=== PATIENT | female | born 1940 | race Caucasian/White ===

== ENCOUNTER 2018-09-23 18:35 | Inpatient (IN) | payer OTHER, MEDICARE ==
[~2018-09-23] VITALS: Ht 167.6 cm; Wt 49.9 kg
--- NOTE | 2018-09-23 18:36 | NUR ---
PT BIBA BLS TO BED 9
[2018-09-23 18:37] VITALS: BP 111/59
--- NOTE | 2018-09-23 18:43 | NUR ---
DR. ROBLES MADE AWARE OF PTS CURRENT CONDITION. NO NEW ORDERS GIVEN.
--- NOTE | 2018-09-23 18:48 | NUR ---
78 Y/O F BIBA W/C/O FLU LIKE SYMPTOMS X3 DAYS. PT STATES FEVER, CHILLS, AND BODY AHCES. PT STATES +DIARRHEA, -N/V. PT RECENTLY HAD SX AT [facility] ON ESOPHAGUS AND IT CURRENTLY ON ANTIBIOTICS. PT HAS PICC LINE IN R ARM. PT AAOX4, RR EVEN/UNLABORED. PT JAUNDICED IN COLOR BUT ONLY STATES COLON CA HX. PERRL, LUNGS CLEAR BL, BREATHING UNLABORED; HR EVEN AND REGULAR, BL PERIPHERAL PULSES PRESENT; BS ACTIVE X4, NO TENDERNESS TO PALPATION, NO HEPATOSPLENOMEGALLY PALPATED, RESONANT TO PERCUSSION; PT DENIES ANY FEVER, CP, SOB, OR COUGH AT THIS TIME; PT STATES 0/10 PAIN AT THIS TIME; VSS; PATIENT POSITIONED FOR COMFORT; HOB ELEVATED; BEDRAILS UP X2; BED DOWN.
[2018-09-23] MEDS ORDERED: ACETAMINOPHEN EXTRA STRENGTH 500 MG TAB PO ONE (19:00)
--- NOTE | 2018-09-23 19:07 | NUR ---
DR. PRITCHETT MADE AWARE OF PTS STATUS AND JAUNDICE. ASKED IF TYLENOL OKAY TO GIVE. HE WILL COME EVALUATE PT.
--- NOTE | 2018-09-23 19:12 | NUR ---
DR. PRITCHETT AT BEDSIDE EVALUATING
[2018-09-23] MEDS ORDERED: NACL 0.9% 1,000 ML IV ONE ×2 (19:16)
--- NOTE | 2018-09-23 19:20 | NUR ---
RECEIVED REPORT FROM AM NURSE. PT RESTING IN BED, DENIES ANY PAIN AT THIS TIME, RR EVEN AND UNLABORED. PER ER MD, IT IS OK TO GIVE TYLENOL PO DESPITE JAUNDICE. ADMINISTERED MED WITH EDUCATION. PT'S NEPHEW AT BEDSIDE TO TRANSLATION PER PT REQUEST. PT VERBALIZED UNDERSTANDING.
--- NOTE | 2018-09-23 19:45 | NUR ---
EKG PERFORMED AT BEDSIDE WITH FAMILY MEMBER PRESENT. PT COVERED IN GOWN AND BLANKET DURING PROCEDURE.
[2018-09-23 20:00] LABS: HEMATOCRIT 30.1 % (36-48); HEMOGLOBIN 9.8 g/dL (12.0-16.0); MEAN CORPUSCULAR HEMOGLOBIN 27 pg (27-31); MEAN CORPUSCULAR HGB CONC 33 g/dL (33-37); MEAN CORPUSCULAR VOLUME 83.5 fL (80-94); PLATELET COUNT (AUTO) 65 K/uL (140-450)
[2018-09-23 20:23] LABS: PROTHROMBIN TIME 10.7 secs (10.8-13.4)
[2018-09-23 20:27] LABS: ANION GAP 13.4 (8-16); ASPARTATE AMINOTRANSFERASE 54 U/L (15-37); CHLORIDE 103 mmol/L (98-107); GLUCOSE 88 mg/dL (74-106); POTASSIUM 3.4 mmol/L (3.5-5.1); SODIUM SERUM 136 mmol/L (136-145); TOTAL BILIRUBIN 7.9 mg/dL (0.0-1.0); UREA NITROGEN, BLOOD 21 mg/dL (7-18)
[2018-09-23 20:28] LABS: ALBUMIN 2.3 g/dL (3.4-5.0); LIPASE 97 U/L (73-393)
[2018-09-23 20:34] LABS: LYMPHOCYTES % (MANUAL) 2 % (20-46); MONOCYTES % (MANUAL) 1 % (5-12)
--- NOTE | 2018-09-23 20:40 | NUR ---
PT'S NEICE AT BEDSIDE. FEMALE CHAPERRONE PIN INSERTER AT BEDSIDE. # 14 FR Urinary catheter inserted utilizing sterile technique. Immediate return of 200 ml SINDY CLEAR urine noted. Urine sample collected and sent to lab. Pt tolerated procedure WELL.
--- NOTE | 2018-09-23 20:53 | NUR ---
PT RESTING IN BED, RR EVEN AND UNLABORED. VS NOTED. AFEBRILE AT THIS TIME. ALL NEEDS MET.
[2018-09-23] MEDS ORDERED: cefTRIAXone 1,000 MG VIAL ONE (21:02)
[2018-09-23] MEDS ORDERED: VANCOMYCIN HCL 750 MG in DEXTROSE 5% 250 ML IV SCH (21:05)
[2018-09-23] MEDS ORDERED: ONDANSETRON 4 MG/2 ML VIAL IVP PRN (21:35)
[2018-09-23] MEDS ORDERED: LORazepam 2 MG/ML VIAL IVP PRN (21:35)
[2018-09-23] MEDS ORDERED: HYDROcodone/APAP 5/325 MG 1 TAB TAB PO PRN ×2 (21:35)
[2018-09-23] MEDS ORDERED: VANCOMYCIN 1,000 MG VIAL ONE (21:36)
[2018-09-23 21:42] LABS: APPEARANCE,URINE CLEAR (CLEAR); COLOR,URINE AMBER (YELLOW); UGLUCOSE NEGATIVE (NEGATIVE)
[2018-09-23 21:43] LABS: BILIRUBIN,URINE 3+ (NEGATIVE); BLOOD, URINE TRACE (NEGATIVE); LEUKOCYTE ESTERASE ,URINE NEGATIVE (NEGATIVE); NITRITE, URINE NEGATIVE (NEGATIVE)
[2018-09-23 21:47] LABS: RBC,URINE 0-5 (RARE) /HPF (0-5)
[2018-09-23 21:48] LABS: WBC,URINE NONE SEEN /HPF (0-5)
[2018-09-23] MEDS ORDERED: FERR324T11 PO (21:56)
[2018-09-23] MEDS ORDERED: MULT-1993 PO (21:56)
[2018-09-23] MEDS ORDERED: MIRA25TE PO (21:56)
[2018-09-23] MEDS ORDERED: ATRO1TAB PO (21:56)
[2018-09-23] MEDS ORDERED: FURO-572 PO (21:56)
[2018-09-23] MEDS ORDERED: [UNRECOGNIZED DRUG - CODE] OP (21:56)
[2018-09-23] MEDS ORDERED: URSO300C14 PO (21:56)
[2018-09-23] MEDS ORDERED: TRAZ-343 PO (21:56)
[2018-09-23] MEDS ORDERED: TAMS0.4C96 PO (21:56)
[2018-09-23] MEDS ORDERED: PHEN-1749 PO (21:56)
[2018-09-23] MEDS ORDERED: ZINC220C12 PO (21:56)
--- NOTE | 2018-09-23 22:00 | NUR ---
Patient will be admitted to care of DR. KIM. Admited to TELE. Will go to [id number]. Belongings list completed. Report to AUREA FIELDS.
[2018-09-23 22:20] VITALS: BP 80/43
--- NOTE | 2018-09-23 22:20 | NUR ---
RECEIVED BEDSIDE REPORT FROM AUREA RUTHERFORD PATIENT IN BED, FAMILY AT BEDSIDE, ROMANIAN SPEAKING, PICC IN UPPER RIGHT ARM, DRESSING INTACT BP 80/60, DENIES PAIN, WILL CALL DR DAVIS FOR ORDERS, EXPLAINED PLAN OF CARE UPDATED BOARD WILL CONTINUE TO MONITOR. CALL LIGHT WITHIN REACH. SKIN INTACT. MRSA SAMPLE COLLECTED AND SENT TO LAB.
--- NOTE | 2018-09-23 22:30 | NUR ---
STARTED NEW IV IN LEFT ARM 22 G INFUSING D5 AND 1/2 NS. STOPPED VANCO DUE TO REACTION HIVES AND REDNESS, CALL DR DAVIS FOR ORDERS FOR BENADRYL 25 ML PO Q6H.
--- NOTE | 2018-09-23 23:00 | NUR ---
CALLED DR DAVIS TO REPORT LOW BP, TPN, K 3.4, ORDERS TO NOT USE PICC LINE UNTIL REEVALUATED DR DAVIS WILL FOLLOW WITH ORDERS IN MORNING.
[2018-09-24] VITALS: BP 82/43
--- NOTE | 2018-09-24 | NUR ---
V/S TAKEN ALL WITHIN BASELINE.
--- NOTE | 2018-09-24 02:00 | NUR ---
PATIENT SLEEPING IN BED CALL LIGHT WITHIN REACH WILL CONTINUE TO MONITOR.
[2018-09-24 04:00] VITALS: BP 88/60
--- NOTE | 2018-09-24 04:00 | NUR ---
V/S TAKEN ALL WITHIN BASELINE
[2018-09-24] MEDS ORDERED: DEXT 5% / NACL 0.45% 1,000 ML IV SCH (06:30)
[2018-09-24 06:58] LABS: HEMATOCRIT 29.5 % (36-48); HEMOGLOBIN 9.5 g/dL (12.0-16.0); MEAN CORPUSCULAR HEMOGLOBIN 27 pg (27-31); MEAN CORPUSCULAR HGB CONC 32 g/dL (33-37); MEAN CORPUSCULAR VOLUME 84.4 fL (80-94); PLATELET COUNT (AUTO) 52 K/uL (140-450); RED CELL DISTRIBUTION WIDTH 17.1 % (11.6-13.7); WHITE BLOOD COUNT (AUTO) 13.6 K/uL (4.8-10.8)
--- NOTE | 2018-09-24 07:00 | NUR ---
ENDORSED PATIENT TO DAY SHIFT NURSE PATIENT STABLE.
[2018-09-24 07:06] LABS: ALBUMIN 2.1 g/dL (3.4-5.0); ANION GAP 13.8 (8-16); ASPARTATE AMINOTRANSFERASE 44 U/L (15-37); CARBON DIOXIDE 22.7 mmol/L (21-32); CHLORIDE 106 mmol/L (98-107); CREATININE 1.1 mg/dL (0.6-1.3); GLUCOSE 110 mg/dL (74-106); MAGNESIUM 1.9 mg/dL (1.8-2.4); PHOSPHORUS 3.4 mg/dL (2.5-4.9); POTASSIUM 3.5 mmol/L (3.5-5.1); SODIUM SERUM 139 mmol/L (136-145); TOTAL BILIRUBIN 7.8 mg/dL (0.0-1.0); UREA NITROGEN, BLOOD 19 mg/dL (7-18)
[2018-09-24 07:13] LABS: LYMPHOCYTES % (MANUAL) 2 % (20-46); MONOCYTES % (MANUAL) 3 % (5-12)
--- NOTE | 2018-09-24 07:30 | NUR ---
RECEIVED PATIENT BY GUEST EXPERIENCE MANAGER RN BY BEDSIDE. PATIENT IS ALERT AND ORIENTED. DENIES ANY PAIN. PATIENT IS ON ROOM AIR. WILL CONTINUE TO MONITOR THE PATIENT.
--- NOTE | 2018-09-24 07:45 | NUR ---
PATIENT HAS BEEN SCREENED AND CATEGORIZED HIGH NUTRITION RISK. PATIENT WILL BE SEEN WITHIN 1-2 DAYS OF ADMISSION. 09/24/18-09/25/[address]
[2018-09-24 08:00] VITALS: BP 87/47
--- NOTE | 2018-09-24 08:30 | NUR ---
PATIENT EVALUATED BY DR KIM. FAMILY MEMBER AT BEDSIDE
[2018-09-24] MEDS ORDERED: TPN PER PHARMACY MC PRN (09:20)
[2018-09-24 12:15] VITALS: BP 91/52
[2018-09-24] MEDS: BLOOD GLUCOSE MONITORING 1 DEV DEV MC SCH ×2 (12:18→18:04)
[2018-09-24] MEDS ORDERED: CLINICAL MONITORING MC PRN (15:00)
[2018-09-24 16:00] VITALS: BP 91/49
[2018-09-24] MEDS ORDERED: DEXTROSE IV SCH ×4 (17:00)
[2018-09-24] MEDS ORDERED: AMINO ACIDS IV SCH ×4 (17:00)
[2018-09-24] MEDS ORDERED: [UNRECOGNIZED DRUG - OTHER] IV SCH ×4 (17:00)
[2018-09-24] MEDS ORDERED: MULTIVITAMIN IV SCH ×4 (17:00)
[2018-09-24] MEDS: PIPER/TAZO 2.25GM/D5W PREMIX 50 ML IV SCH ×2 (18:00→23:56)
--- NOTE | 2018-09-24 19:42 | NUR ---
PATIENT ENDORSED TO THE INSECT CONTROL AIDE RN BY HER BEDSIDE. PATIENT IS COMFORTABLE AND DENIES ANY PAIN. BED IS AT THE LOWEST POSITION AND CALL LIGHT WITHIN REACH
--- NOTE | 2018-09-24 19:43 | NUR ---
RECEIVED PT IN STABLE CONDITION FROM AM NURSE. AWAKE,ALERT AND ORIENTED X 4. KYRGYZ SPEAKING. ON TELE MONITOR. BEDREST. WITH NO C/O ANY DISCOMFORT NOR PAIN. JUST FEEL COLD ,SHE SAID FROM THE TPN. TPN ON THE RT UPPER ARM PICC LINE. SO FAMILY REQUESTED TO STOP FOR NOW THEN RESTART LATER WHEN TPN IS A LITTLE WARM WHAT THEY DO AT HOME. PT IS INCONTINENT OF URINE. WITH COLOSTOMY BAG. BED ON LOW POSITION. SIDE RAILS UP X2. CALL LIGHT PLACED WITHIN EASY REACH. WILL CONTINUE TO MONITOR.
[2018-09-24 19:45] VITALS: BP 94/52
--- NOTE | 2018-09-24 20:21 | NUR ---
LAB CALLED FOR BLOOD CULTURE REST X2 GRAM NEGATIVE BACILLI ON BOTH. DR. ZAMARRIPA WAS PAGED AND CALLED BACK. MADE AWARE OF THE BC RESULT. WITH ORDER TO DISCONTINUE ZYVOX AND CONTINUE WITH THE ZOSYN.
--- NOTE | 2018-09-24 20:30 | NUR ---
TPN RESTARTED . NO C/O ANY DISCOMFORT NOTED.
[2018-09-24] MEDS ORDERED: LINEZOLID 600MG PREMIX 300 ML IV SCH (21:00)
[2018-09-24] MEDS: ACETAMINOPHEN 325 MG TAB PO PRN (21:34)
--- NOTE | 2018-09-24 23:00 | NUR ---
SLEEPING WELL. NO S/S FO ANY DISCOMFORT NOR PAIN NOTED.
[2018-09-25] VITALS (7 sets, daily range): BP systolic 82–106; BP diastolic 45–56
[2018-09-25] MEDS: BLOOD GLUCOSE MONITORING 1 DEV DEV MC SCH ×6 (00:11→23:49)
[2018-09-25] MEDS: INSULIN LISPRO SLIDING SCALE 100 UNITS/ML VIAL SUBQ PRN ×2 (00:11→06:02)
--- NOTE | 2018-09-25 00:30 | NUR ---
PT INCONTINENT OF URINE. CLEANED AND KEPT DRY BY CHICKEN SEXER.
--- NOTE | 2018-09-25 02:00 | NUR ---
ASLEEP. NO S/S OF ANY DISCOMFORT NOTED.
--- NOTE | 2018-09-25 04:20 | NUR ---
VITAL SIGNS TAKEN. LATEST BP 97/67.
[2018-09-25] MEDS: PIPER/TAZO 2.25GM/D5W PREMIX 50 ML IV SCH ×4 (05:19→23:49)
--- NOTE | 2018-09-25 06:02 | NUR ---
BLOOD SUGAR WAS CHECKED RESULT 173. INSULIN COVERAGE HUMALOG 2 UNITS SUBQ GIVEN.
[2018-09-25 06:44] LABS: BASOPHILS % (AUTO) 0.6 % (0.0-2.0); EOSINOPHILS # (AUTO) 0.1 K/uL (0-0.4); EOSINOPHILS % (AUTO) 0.9 % (0.0-4.0); HEMATOCRIT 28.3 % (36-48); HEMOGLOBIN 9.2 g/dL (12.0-16.0); LYMPHOCYTES # (AUTO) 0.5 K/uL (2.5-16.5); LYMPHOCYTES % (AUTO) 9.4 % (20.5-51.1); MEAN CORPUSCULAR HEMOGLOBIN 27 pg (27-31); MEAN CORPUSCULAR HGB CONC 33 g/dL (33-37); MEAN CORPUSCULAR VOLUME 84.3 fL (80-94); MONOCYTES # (AUTO) 0.4 K/uL (0.8-1.0); NEUTROPHILS # (AUTO) 4.5 K/uL (1.8-7.7); NEUTROPHILS % (AUTO) 81.1 % (42.2-75.2); PLATELET COUNT (AUTO) 48 K/uL (140-450); RED BLOOD CELL COUNT(AUTO) 3.36 MIL/uL (4.20-5.40); RED CELL DISTRIBUTION WIDTH 17.4 % (11.6-13.7); WHITE BLOOD COUNT (AUTO) 5.6 K/uL (4.8-10.8)
[2018-09-25 07:31] LABS: MAGNESIUM 2.1 mg/dL (1.8-2.4); PHOSPHORUS 3.1 mg/dL (2.5-4.9)
[2018-09-25 07:34] LABS: ALBUMIN 1.8 g/dL (3.4-5.0); ANION GAP 12.1 (8-16); ASPARTATE AMINOTRANSFERASE 29 U/L (15-37); CARBON DIOXIDE 23.5 mmol/L (21-32); CHLORIDE 110 mmol/L (98-107); CREATININE 1.1 mg/dL (0.6-1.3); GLUCOSE 170 mg/dL (74-106); POTASSIUM 3.6 mmol/L (3.5-5.1); SODIUM SERUM 142 mmol/L (136-145); TOTAL BILIRUBIN 4.4 mg/dL (0.0-1.0); UREA NITROGEN, BLOOD 17 mg/dL (7-18)
--- NOTE | 2018-09-25 07:35 | NUR ---
ENDORSED PT IN STABLE CONDITION TO AM NURSE FOR CONTINUITY OF CARE.
--- NOTE | 2018-09-25 10:06 | NUR ---
PATIENT AWAKE IN BED. NO S/S OF DISTRESS NOTED
--- NOTE | 2018-09-25 14:59 | NUR ---
09/25/18 RD INITIAL ASSESSMENT COMPLETED PLEASE REFER TO NUTRITION ASSESSMENT UNDER CARE ACTIVITY FOR ESTIMATED NUTRITIONAL NEEDS. 1. CONTINUE TPN AND FULL LIQUID DIET TOLERATED -TPN: D13%, AA 3%, LIPIDS 20% 170 ML; 1700 ML X 18 HOURS. THIS WILL PROVIDE 1295 KCAL, 51 GM OF PROTEIN/DAY. -FULL LIQUID DIET WILL PROVIDE APPROXIMATELY 2337 KCAL AND 61 GM PROTEIN/DAY. 2. PROVIDE NUTRITION EDUCATION AT FOLLOW UP VISIT 3. RD TO FOLLOW-UP 2-3 DAYS, HIGH RISK MALATHI PERALTA RD
[2018-09-25] MEDS ORDERED: MULTIVITAMIN IV SCH ×4 (17:00)
[2018-09-25] MEDS ORDERED: AMINO ACIDS IV SCH ×4 (17:00)
[2018-09-25] MEDS ORDERED: DEXTROSE IV SCH ×4 (17:00)
[2018-09-25] MEDS ORDERED: [UNRECOGNIZED DRUG - OTHER] IV SCH ×4 (17:00)
--- NOTE | 2018-09-25 18:15 | NUR ---
PATIENT WAS HAVING DINNER WITH FAMILY MEMBER PRESENT AT BEDSIDE WHEN PATIENT STARTED SHIVERING UNCONTROLLABLY AND C/O OF NAUSEA. TEMP CHECKED ORALLY 98.0. ZOFRAN ADMINISTERED . WILL CONTINUE TO MONITOR
--- NOTE | 2018-09-25 18:35 | NUR ---
TPN PUT ON HOLD. PATIENT PLACED ON 2L O2 VIA NC
--- NOTE | 2018-09-25 18:35 | NUR ---
PATIENT'S SHAKING INTENSITY INCREASED AND PATIENT STARTED VOMITING. SMALL AMOUNT OF CLEAR THICK LIQUID EMESIS NOTED. CHAIN PERSON CALLED. DR ROUSSEAU PAGED
--- NOTE | 2018-09-25 18:44 | NUR ---
SPOKE TO DR ROUSSEAU AND NOTIFIED HIM ABOUT PATIENT'S CONDITION. PER DR ROUSSEAU, ADMINISTER TYLENOL. MEDS CRUSHED AND MIXED WITH APPLE SAUCE BUT PATIENT IS UNABLE TO TOLERATE PO AT THIS TIME. PAGED DR ROUSSEAU
[2018-09-25] MEDS: ACETAMINOPHEN 325 MG TAB PO PRN (18:48)
[2018-09-25] MEDS ORDERED: KETOROLAC 30 MG/ML VIAL IVP PRN (19:05)
[2018-09-25] MEDS ORDERED: KETOROLAC 30 MG/ML VIAL ONE (19:13)
--- NOTE | 2018-09-25 19:28 | NUR ---
MADE DR ROUSSEAU AWARE THAT PATIENT IS UNABLE TO TOLERATE PO MEDS AT THIS TIME. ORDERS TORADOL 30MG Q6H. TORADOL ADMINISTERED. PATIENT IS NO LONGER SHAKING BUT REPORTS OF BEING COLD. TEMP CHECKED ORALLY 102.8. COOLING MEASURES PUT IN PLACE. MADE DR ROUSSEAU AWARE OF PATIENT LATEST TEMP AND THAT TPN HAS BEEN PUT ON HOLD. NO NEW ORDERS
--- NOTE | 2018-09-25 19:35 | NUR ---
PATIENT REPORT GIVEN AT BEDSIDE. PATIENT AWAKE IN BED. FAMILY MEMBERS PRESENT AT BEDSIDE
--- NOTE | 2018-09-25 19:35 | NUR ---
RECEIVED FROM AM RN IN BED AWAKE AND ALERT. FAMILY MEMBERS AROUND. NO SOB. WITH 02 AT 2LPM/NC. CARE PLANS FOR THE NIGHT DISCUSSED WITH HER AND PT. UNDERSTANDS SIMPLE [place] AND [place] . FAMILY MEMBERS SPEAKS GOOD MARTINIQUAIS. CALL LIGHT WITH IN REACH. RE-ORIENTED USE OF IT. BED ALARM ON. DX. OF UTI AND FEVER. MEDICATED BY AM RN RECENTLY WITH TORADOL IVP ORDERED FOR FEVER. COOLING MEASURES IN PLACE AND PT. PER ORAL IS STILL AT 102.8. PER PT. SHE LESS SHAKING NOW THAN EARLIER RT FEVER.
--- NOTE | 2018-09-25 23:54 | NUR ---
PT. SLEEPING AT THIS TIME. ON ROOM AIR WITH 02 SAT OF 96 %. PULSE 72 AND 82/45 BP. NO RESTLESSNESS. TELEMETRY MONITORING. NO COMPLAINTS AT THIS TIME. TOOK BLOOD SPECIMEN FOR BLOOD SUGAR CHECK =93 PER FINGERSTICK.
[2018-09-26 00:08] VITALS: BP 91/50
--- NOTE | 2018-09-26 02:30 | NUR ---
SLEEPING WELL. PT. ABLE TO VERBALIZE SIMPLE NEEDS. KEPT CLEAN AND DRY. NO FEVER. TELEMETRY MONITORING.
[2018-09-26 04:35] VITALS: BP 85/34
--- NOTE | 2018-09-26 04:39 | NUR ---
NEEDS ATTENDED TO. ABLE TO VERBALIZE SIMPLE NEEDS IN [place]. PT. TURNED TO SIDES Q 2 H BY CNAS. ENCOURAGED TO STAY ON TURNED SIDE. AFEBRILE .
[2018-09-26] MEDS: PIPER/TAZO 2.25GM/D5W PREMIX 50 ML IV SCH ×3 (05:09→17:15)
[2018-09-26] MEDS: BLOOD GLUCOSE MONITORING 1 DEV DEV MC SCH ×3 (05:13→18:22)
[2018-09-26 06:49] LABS: ALBUMIN 1.9 g/dL (3.4-5.0); ANION GAP 8.6 (8-16); ASPARTATE AMINOTRANSFERASE 33 U/L (15-37); CARBON DIOXIDE 26.4 mmol/L (21-32); CHLORIDE 109 mmol/L (98-107); CREATININE 1.3 mg/dL (0.6-1.3); GLUCOSE 107 mg/dL (74-106); SODIUM SERUM 140 mmol/L (136-145); TOTAL BILIRUBIN 6.7 mg/dL (0.0-1.0); UREA NITROGEN, BLOOD 21 mg/dL (7-18)
[2018-09-26 07:27] LABS: MAGNESIUM 1.9 mg/dL (1.8-2.4); PHOSPHORUS 4.2 mg/dL (2.5-4.9)
[2018-09-26 07:42] LABS: BASOPHILS % (AUTO) 0.1 % (0.0-2.0); EOSINOPHILS % (AUTO) 0.3 % (0.0-4.0); HEMATOCRIT 30.3 % (36-48); HEMOGLOBIN 9.8 g/dL (12.0-16.0); LYMPHOCYTES # (AUTO) 0.5 K/uL (2.5-16.5); LYMPHOCYTES % (AUTO) 4.9 % (20.5-51.1); MEAN CORPUSCULAR HEMOGLOBIN 27 pg (27-31); MEAN CORPUSCULAR HGB CONC 32 g/dL (33-37); MEAN CORPUSCULAR VOLUME 84.4 fL (80-94); MONOCYTES # (AUTO) 0.6 K/uL (0.8-1.0); MONOCYTES % (AUTO) 5.1 % (1.7-9.3); NEUTROPHILS # (AUTO) 9.9 K/uL (1.8-7.7); NEUTROPHILS % (AUTO) 89.6 % (42.2-75.2); PLATELET COUNT (AUTO) 37 K/uL (140-450); RED CELL DISTRIBUTION WIDTH 17.7 % (11.6-13.7)
--- NOTE | 2018-09-26 07:46 | NUR ---
ENDORSED TO THE NEXT RN FOR CONTINUITY OF CARE. AWAKE AND ALERT.
--- NOTE | 2018-09-26 07:47 | NUR ---
RECEIVED REPORT FROM BIOINFORMATICIST NURSE. PT IS RESTING IN BED, SEMI FOWLERS POSITION, PT IS AAOX4, AMBULATES WITH ASSIST, PT HAS PICC LINE ON RIGHT UPPER ARM, X2 LUMEN, PATENT, INTACT, FLUSHING WELL, PER BIOINFORMATICIST NURSE PICC LINE IS NOT BEING USED AT THIS TIME, PT HAD A REACTION WHEN ADMINISTERING TPN LAST NIGHT, HOLD OFF ON PICC LINE USE UNTIL DOCTOR COMES IN, PT HAS IV ON THE LEFT WRIST AND LEFT FA, PATENT, INTACT, FLUSHING WELL, PT IS ON ROOM AIR, NO S/S OF RESPIRATORY DISTRESS OR DISCOMFORT NOTED, DISCUSSED PLAN OF CARE WITH PT, PT VERBALIZED UNDERSTANDING, SAFETY/FALL PRECAUTIONS ARE IN PLACE, CALL LIGHT IS WITHIN REACH, WILL CONTINUE TO MONITOR.
[2018-09-26 08:00] VITALS: BP 94/47
--- NOTE | 2018-09-26 09:07 | NUR ---
PER DR. KIM REMOVE PICC LINE AND SEND IT TO LAB. HOLD TPN FOR NOW, WILL CONSIDER PICC LINE FOR Saturday09/29/18.
--- NOTE | 2018-09-26 10:00 | NUR ---
PICC LINE FROM RIGHT UPPER ARM REMOVED, PT TOLERATED WELL, NO DISCOMFORT OR BLEEDING NOTED. CATHETER TIP SENT TO LAB.
[2018-09-26 12:00] VITALS: BP 83/44
--- NOTE | 2018-09-26 12:00 | NUR ---
PT IS SLEEPING IN BED, NO S/S OF DISTRESS OR DISCOMFORT NOTED, CALL LIGHT IS WITHIN REACH.
[2018-09-26] MEDS: DEXT 5% /NACL 0.9% 1,000 ML IV SCH (12:38)
--- NOTE | 2018-09-26 13:47 | NUR ---
GAVE NURSE RECOMMENDATIONS FOR ENSURE CLEAR TID AND A MULTIVITAMIN QD, DUE TO PATIENT NOT BEING ON TPN AT THE MOMENT. MALATHI PERALTA RD
--- NOTE | 2018-09-26 15:00 | NUR ---
PT IS RESTING IN BED, WATCHING TV, PATIENT'S NEPHEW IS AT BEDSIDE.
[2018-09-26 16:00] VITALS: BP 81/46
--- NOTE | 2018-09-26 18:00 | NUR ---
PT IS RESTING IN BED, NO S/S OF DISTRESS OR DISCOMFORT NOTED, FAMILY IT AT BEDSIDE, CALL LIGHT WITHIN REACH.
--- NOTE | 2018-09-26 19:20 | NUR ---
ENDORSED PT TO SOFTWARE SOLUTIONS ARCHITECT NURSE FOR CONTINUITY OF CARE. PT STABLE AT THIS TIME.
--- NOTE | 2018-09-26 19:25 | NUR ---
RECEIVED FROM AM RN IN BED AWAKE AND ALERT. SITTING UP AND TALKING TO A VISITOR. NO SOB. DENIES PAIN AT THIS TIME. IVF SITE INTACT AND INFUSING WELL . GOOD BLOOD RETURN. CARE PLANS FOR THE NIGHT DISCUSSED WITH HER. CALL LIGHT BESIDE HER FOR ANY HELP SHE MAY NEED. ON TELEMETRY MONITORING .
[2018-09-26 19:51] VITALS: BP 83/50
[2018-09-26] MEDS ORDERED: cefTRIAXone 1,000 MG VIAL ONE (22:43)
--- NOTE | 2018-09-27 | NUR ---
BLOOD SUGAR CHECK PER FINGERSTICK WNL. NO S/S OF HYPOGLYCEMIA. CALL LIGHT WITH IN REACH.
[2018-09-27] MEDS: BLOOD GLUCOSE MONITORING 1 DEV DEV MC SCH ×5 (00:23→23:35)
[2018-09-27 00:33] VITALS: BP 80/40
[2018-09-27] MEDS: DEXT 5% /NACL 0.9% 1,000 ML IV SCH ×2 (01:23→14:35)
--- NOTE | 2018-09-27 04:00 | NUR ---
SLEEPING. NEEDS WILL BE ANTICIPATED AND WILL BE MET. AFEBRILE.
[2018-09-27 04:38] VITALS: BP 85/42
[2018-09-27 06:39] LABS: BASOPHILS % (AUTO) 0.5 % (0.0-2.0); EOSINOPHILS % (AUTO) 0.4 % (0.0-4.0); HEMATOCRIT 28.3 % (36-48); HEMOGLOBIN 9.3 g/dL (12.0-16.0); LYMPHOCYTES # (AUTO) 0.4 K/uL (2.5-16.5); LYMPHOCYTES % (AUTO) 3.9 % (20.5-51.1); MEAN CORPUSCULAR HEMOGLOBIN 28 pg (27-31); MEAN CORPUSCULAR HGB CONC 33 g/dL (33-37); MEAN CORPUSCULAR VOLUME 83.6 fL (80-94); MONOCYTES # (AUTO) 0.4 K/uL (0.8-1.0); MONOCYTES % (AUTO) 4.6 % (1.7-9.3); NEUTROPHILS # (AUTO) 8.4 K/uL (1.8-7.7); NEUTROPHILS % (AUTO) 90.6 % (42.2-75.2); RED BLOOD CELL COUNT(AUTO) 3.39 MIL/uL (4.20-5.40); RED CELL DISTRIBUTION WIDTH 17.7 % (11.6-13.7)
[2018-09-27 06:55] LABS: PLATELET COUNT (AUTO) 16 K/uL (140-450)
[2018-09-27 07:05] LABS: MAGNESIUM 1.9 mg/dL (1.8-2.4); PHOSPHORUS 2.4 mg/dL (2.5-4.9)
[2018-09-27 07:09] LABS: ALBUMIN 1.6 g/dL (3.4-5.0); ANION GAP 11.4 (8-16); ASPARTATE AMINOTRANSFERASE 30 U/L (15-37); CARBON DIOXIDE 22.9 mmol/L (21-32); CHLORIDE 110 mmol/L (98-107); CREATININE 1.3 mg/dL (0.6-1.3); GLUCOSE 135 mg/dL (74-106); POTASSIUM 3.3 mmol/L (3.5-5.1); SODIUM SERUM 141 mmol/L (136-145); TOTAL BILIRUBIN 6.2 mg/dL (0.0-1.0); UREA NITROGEN, BLOOD 20 mg/dL (7-18)
[2018-09-27 07:16] LABS: WHITE BLOOD COUNT (AUTO) 9.3 K/uL (4.8-10.8)
--- NOTE | 2018-09-27 07:38 | NUR ---
SLEPT WELL THIS SHIFT. NEEDS MET. TURNED TO SIDES BY CNAS. ENDORSED TO THE NEXT RN FOR CONTINUITY OF CARE.
--- NOTE | 2018-09-27 07:43 | NUR ---
RECEIVED PT FROM SOAP BOILER NURSEENEIDA, PT IS AWAKE AND LYING ON THE BED WITH AN IV LINE ON THE LEFT HAND G. 22., INTACT AND D5NS INFUSING AT 75ML/HR. PT HAS A COLOSTOMY BAG IN PLACE, FALL AND SAFETY PRECAUTION ENFORCED, BED IN LOW POSITION, YELLOW SIGN,YELLOW GOWN, YELLOW ARM BAND IN PLACE, PT DENIES SOB AND PAIN AT THIS TIME. NO SIGN OF DISTRESS NOTED AND WILL CONTINUE TO MONITOR PT.
[2018-09-27 08:00] VITALS: BP 95/44
--- NOTE | 2018-09-27 09:50 | NUR ---
INFORMED DR. KIM OF THE PT'S POTASSIUM LEVEL OF 3.3 AND MD ACKNOWLEDGED AND SAID WILL PLACE AN ORDER.
[2018-09-27] MEDS ORDERED: POTASSIUM CHLORIDE 20% 40 MEQ/15 ML UDC PO SCH (10:30)
--- NOTE | 2018-09-27 10:40 | NUR ---
PT'S IV LINE WAS INFILTRATED AND WAS STOPPED AND DISCONNECTED, WILL RE-INSERT A NEW IV LINE.
--- NOTE | 2018-09-27 10:45 | NUR ---
A NEW PERIPHERAL LINE WAS INSERTED TO THE PT AT THE LEFT FOREARM G. 20, INTACT AND PATENT AND D5NS INFUSING AT 75 ML/HR. NO SIGN OF DISTRESS NO5TED AND WILL CONTINUE TO MONITOR PT.
--- NOTE | 2018-09-27 11:30 | NUR ---
PT IS AWAKE AND INFORMED THAT K LEVEL IS LOW, 3.3 AND ORAL POTASSIUM MEDICATION WAS GIVEN AT 7.5 ML, PT TOLERATED IT. WILL CONTINUE TO MONITOR PT.
[2018-09-27 12:00] VITALS: BP 109/59
--- NOTE | 2018-09-27 15:22 | NUR ---
09/27/18 RD FOLLOW UP COMPLETED PLEASE REFER TO NUTRITION PROGRESS NOTE UNDER CARE ACTIVITY FOR ESTIMATED NUTRITION NEEDS. RD RECOMMENDATIONS: 1. CONTINUE FULL LIQUID DIET AND ENSURE CLEAR TID ORDERED. -NOTE PT WITH POOR ORAL INTAKE. 2. RECOMMEND TO ENCOURAGE ORAL AND ENSURE CLEAR INTAKE TO OPTIMIZE NUTRITION INTAKE. 3. IF/WHEN PT IS MEDICALLY STABLE TO RESUME TPN, CONTINUE TPN: D13%, AA 3%, LIPIDS 20% 170 ML; 1700 ML X [address] TO FOLLOW-UP 2-3 DAYS, HIGH RISK COLTEN GARCIA, RD
[2018-09-27 16:00] VITALS: BP 103/51
--- NOTE | 2018-09-27 16:10 | NUR ---
PT WAS STARTED ON A PLATELET TRANSFUSION, MEDARDO VILLAR VERIFIED WITH EDVIN VILLAR. INITIAL VITAL SIGNS WERE TAKEN. WILL CONTINUE TO MONITOR PT.
--- NOTE | 2018-09-27 18:00 | NUR ---
PT IS AWAKE WITH FAMILY ON THE BEDSIDE, WITH PLATELET TRANSFUSION STILL GOING, BLOOD GLUCOSE CHECK DONE AND RESULT IS 117, NO INSULIN COVERAGE NEEDED, WILL CONTINUE TO MONITOR PT.
--- NOTE | 2018-09-27 18:25 | NUR ---
PT'S PLATELET TRANSFUSION WAS FINISHED NOW, V/S TAKEN AND IS STABLE AND WITHIN NORMAL LIMITS, NO NEGATIVE REACTION NOTED ON THE PT AND PT DENIES ANY PAIN OR SOB.
--- NOTE | 2018-09-27 19:25 | NUR ---
ENDORSED PT TO INTERNET DESIGNER NURSECRISTI FOR CONTINUITY OF CARE. PT IS STABLE AT THIS TIME.
[2018-09-27 20:00] VITALS: BP 106/45
--- NOTE | 2018-09-27 20:46 | NUR ---
RECEIVED REPORT FROM DAY SHIFT NURSE, EDVIN, AT PT BEDSIDE. PT IN STABLE CONDITION. PT IS AAO X4. PT IS ON RA. RESPIRATIONS EVEN AND UNLABORED. IV ACCESS IN L FA 20G WITH IVF RUNNING PER MD ORDERS. IV IS PATENT AND INTACT. PT SKIN IS INTACT. PT HAS COLOSTOMY BAG IN PLACE. PT HAS NO C/O PAIN AT THIS TIME. SCD'S ARE IN PLACE. BED IS LOCKED, LOW POSITION, WITH SIDE RAILS UP X2. BOARD UPDATED. CALL LIGHT IS WITHIN REACH. WILL CONTINUE TO MONITOR PT. Addendum: 09/27/18 at 2100 by Barbara Platt RN LATE ENTRY, [id number]
--- NOTE | 2018-09-27 22:15 | NUR ---
PT RESTING COMFORTABLY IN BED. NO SIGNS OR SYMPTOMS OF DISTRESS. WILL CONTINUE TO MONITOR PT.
--- NOTE | 2018-09-27 23:36 | NUR ---
PT BS CHECKED, 113. NO COVERAGE NEEDED PER MD ORDERS. ADMINISTERED SCHEDULED MEDICATION. PT TOLERATED WELL. ALL OTHER NEEDS ARE MET AT THIS TIME. WILL CONTINUE TO MONITOR.
[2018-09-28] VITALS: BP 107/44
--- NOTE | 2018-09-28 01:50 | NUR ---
PT ASLEEP IN BED. NO SIGNS OR SYMPTOMS OF DISTRESS. WILL CONTINUE TO MONITOR.
--- NOTE | 2018-09-28 03:46 | NUR ---
VS WITHIN NORMAL LIMITS. PT ASLEEP IN BED. WITH NO SIGNS OR SYMPTOMS OF DISTRESS. WILL CONTINUE TO MONITOR.
[2018-09-28] MEDS: DEXT 5% /NACL 0.9% 1,000 ML IV SCH ×2 (03:55→12:06)
[2018-09-28 04:00] VITALS: BP 101/41
--- NOTE | 2018-09-28 05:36 | NUR ---
BS CHECKED, 110. NO COVERAGE NEEDED PER MD ORDERS.
[2018-09-28] MEDS: BLOOD GLUCOSE MONITORING 1 DEV DEV MC SCH ×4 (05:38→23:07)
--- NOTE | 2018-09-28 07:21 | NUR ---
ENDORSED PT TO DAY SHIFT NURSE FOR CONTINUITY OF CARE. PT IN STABLE CONDITION.
--- NOTE | 2018-09-28 07:25 | NUR ---
RECEIVED PT FROM REPORTING MANAGER NURSECRISTI , PT IS AWAKE AND LYING ON THE BED WITH SIDE RAILS UP AND CALL LIGHT WITHIN REACH, PT HAS AN IV LINE ON THE LEFT FA G.20, WITH D5NS AT 75 ML/HR INFUSING. FALL AND SAFETY PRECAUTION ENFORCED, PT DENIES PAIN AT THIS TIME AND NO SOB NOTED. WILL CONTINUE TO MONITOR PT.
[2018-09-28 07:42] LABS: MAGNESIUM 1.7 mg/dL (1.8-2.4); PHOSPHORUS 2.3 mg/dL (2.5-4.9)
[2018-09-28 07:43] LABS: HEMATOCRIT 27.6 % (36-48); MEAN CORPUSCULAR HEMOGLOBIN 27 pg (27-31); MEAN CORPUSCULAR HGB CONC 33 g/dL (33-37); MEAN CORPUSCULAR VOLUME 84.2 fL (80-94); PLATELET COUNT (AUTO) 55 K/uL (140-450); RED BLOOD CELL COUNT(AUTO) 3.28 MIL/uL (4.20-5.40); WHITE BLOOD COUNT (AUTO) 6.5 K/uL (4.8-10.8)
[2018-09-28 07:52] LABS: ALBUMIN 1.7 g/dL (3.4-5.0); ANION GAP 8.7 (8-16); ASPARTATE AMINOTRANSFERASE 25 U/L (15-37); CARBON DIOXIDE 22.8 mmol/L (21-32); CHLORIDE 113 mmol/L (98-107); GLUCOSE 105 mg/dL (74-106); POTASSIUM 3.5 mmol/L (3.5-5.1); SODIUM SERUM 141 mmol/L (136-145); TOTAL BILIRUBIN 4.2 mg/dL (0.0-1.0); UREA NITROGEN, BLOOD 16 mg/dL (7-18)
[2018-09-28 07:53] LABS: PROTHROMBIN TIME 10.2 secs (10.8-13.4)
[2018-09-28 08:00] VITALS: BP 116/55
--- NOTE | 2018-09-28 08:10 | NUR ---
DR. KIM WAS INFORMED OF THE PT'S MG LEVEL OF 1.7, MD ACKNOWLEDGED AND WILL WAIT FOR FURTHER ORDER FROM DR. KIM.
[2018-09-28] MEDS ORDERED: MAGNESIUM SULFATE 50% 1,000 MG in NACL 0.9% 50 ML IV ONE (08:15)
[2018-09-28 08:22] LABS: BASOPHILS % (MANUAL) 0 % (0-2); EOSINOPHILS % (MANUAL) 0 % (0-4); LYMPHOCYTES % (MANUAL) 14 % (20-46); MONOCYTES % (MANUAL) 10 % (5-12)
--- NOTE | 2018-09-28 08:25 | NUR ---
DR. KIM CAME TO THE PT'S ROOM AND SPOKE TO PT, PT VERBALIZED TO THE MD THE SHE IS HAVING DIFFICULTY SWALLOWING, INTERPRETED IN CHINESE BY STUDENT NURSE, EPI, PT WAS GIVEN TEACHING REGARDING SWALLOWING, PT WAS ADVISED TO CHEW FOOD WELL AND DO A CHIN TUCK WHEN SWALLOWING FOOD, PT WAS ADVISED ALSO TO DRINK FLUID SLOWLY AND IN MODERATION, PT VERBALIZED UNDERSTANDING WITH THE TEACHING. WILL CONTINUE TO MONITOR PT.
[2018-09-28] MEDS ORDERED: MAGNESIUM SULFATE 1GM in DEXTROSE 5% 100 ML PREMIX IV SCH (09:00)
--- NOTE | 2018-09-28 09:22 | NUR ---
PT IS AWAKE AND MAGNESIUM IVPB WAS GIVEN TO PT FOR A MG LEVEL OF 1.7. WILL MONITOR PT.
[2018-09-28 12:00] VITALS: BP 103/50
--- NOTE | 2018-09-28 12:00 | NUR ---
PT IS AWAKE AND ABOUT TO HAVE HER DINNER, BLOOD GLUCOSE CHECK DONE AND RESULT IS 128, NO INSULIN COVERAGE NEEDED.
[2018-09-28 16:00] VITALS: BP 115/56
--- NOTE | 2018-09-28 17:55 | NUR ---
PT IS AWAKE AND SEATED ON THE BED, BLOOD GLUCOSE CHECK DONE AND RESULT IS 107, NO INSULIN COVERAGE NEEDED, PT'S DINNER TRAY WAS SERVED AND WAS ASSISTED TO EAT.
--- NOTE | 2018-09-28 18:13 | NUR ---
DR. ZAMARRIPA CAME TO PT'S ROOM AND SPOKE TO PT.
--- NOTE | 2018-09-28 19:30 | NUR ---
ENDORSED PT TO COLLECTION SYSTEMS MODELER NURSECRISTI FOR CONTINUITY OF CARE, PT IS TABLE AT THIS TIME.
--- NOTE | 2018-09-28 19:30 | NUR ---
RECEIVED REPORT FROM DAY SHIFT NURSE, EDVIN, AT PT BEDSIDE. PT IN STABLE CONDITION. PT IS AAO X4. PT IS ON RA. RESPIRATIONS EVEN AND UNLABORED. IV ACCESS IN L FA 20G WITH IVF RUNNING PER MD ORDERS. IV IS PATENT AND INTACT. PT SKIN IS INTACT. PT HAS COLOSTOMY BAG IN PLACE. PT HAS NO C/O PAIN AT THIS TIME. SCD'S ARE IN PLACE. BED IS LOCKED, LOW POSITION, WITH SIDE RAILS UP X2. BOARD UPDATED. CALL LIGHT IS WITHIN REACH. WILL CONTINUE TO MONITOR PT.
[2018-09-28 20:00] VITALS: BP 104/43
--- NOTE | 2018-09-28 21:20 | NUR ---
PT IS RESTING COMFORTABLY IN BED. NO SIGNS OR SYMPTOMS OF DISTRESS. ALL NEEDS ARE MET AT THIS TIME. WILL CONTINUE TO MONITOR.
--- NOTE | 2018-09-28 23:07 | NUR ---
ADMINISTERED SCHEDULED MEDICATION. BS CHECKED, 95. NO COVERAGE NEEDED PER MD ORDERS. OSTOMY BAG EMPTIED, 30ML. ALL OTHER PT NEEDS ARE MET AT THIS TIME. NO SINGS OR SYMPTOMS OF DISTRESS. WILL CONTINUE TO MONITOR.
[2018-09-29] VITALS: BP 111/46
--- NOTE | 2018-09-29 01:12 | NUR ---
PT ASLEEP IN BED. NO SIGNS OR SYMPTOMS OF DISTRESS. WILL CONTINUE TO MONITOR.
[2018-09-29] MEDS: DEXT 5% /NACL 0.9% 1,000 ML IV SCH ×2 (02:30→17:38)
--- NOTE | 2018-09-29 02:30 | NUR ---
NEW BAG OF IVF STARTED. PT ASLEEP IN BED. NO SIGNS OR SYMPTOMS OF DISTRESS. WILL CONTINUE TO MONITOR.
[2018-09-29 04:00] VITALS: BP 114/57
[2018-09-29] MEDS: BLOOD GLUCOSE MONITORING 1 DEV DEV MC SCH ×3 (04:44→18:00)
--- NOTE | 2018-09-29 04:45 | NUR ---
BS CHECKED, 111. NO COVERAGE NEEDED PER MD ORDERS. PT VS WITHIN NORMAL LIMITS. NO SIGNS OR SYMPTOMS OF DISTRESS. WILL CONTINUE TO MONITOR.
--- NOTE | 2018-09-29 07:29 | NUR ---
ENDORSED PLAN OF CARE TO DAY SHIFT NURSE FOR CONTINUITY OF CARE. PT IN STABLE CONDITION.
--- NOTE | 2018-09-29 07:30 | NUR ---
RECIEVED REPORT FORM PM NURSE AT BEDSIDE. PT SLEEPING AT THIS TIME. PT HAS LF FA 24 G, D5 IN NS IVF INFUSING AT 75 ML/HR. SKIN IS INTACT. HAS COLOSTOMY BAG. PT IS ON FULL LIQUID DIET. DENIES PICC LINE, TPN ON HOLD. PT IS MALAGASY SPEAKING ONLY , DENIES ANY PAIN OR DISCOMFORT. ON FALL PRECAUTION. ALL SAFETY MEASURE IN PLACE. NO SIGN OF DISTRESS NOTED. PLACED CALL LIGHT WITHIN PT REACH. INFORMED HER TO USE CALL LIGHT FOR ANY HELP. VERBALIZED UNDERSTANDING . WILL CONTINUE TO MONITOR PT.
[2018-09-29 07:38] LABS: MAGNESIUM 1.9 mg/dL (1.8-2.4); PHOSPHORUS 2.5 mg/dL (2.5-4.9)
[2018-09-29 07:41] LABS: HEMATOCRIT 29.2 % (36-48); HEMOGLOBIN 9.3 g/dL (12.0-16.0); MEAN CORPUSCULAR HEMOGLOBIN 27 pg (27-31); MEAN CORPUSCULAR HGB CONC 32 g/dL (33-37); PLATELET COUNT (AUTO) 58 K/uL (140-450); RED BLOOD CELL COUNT(AUTO) 3.44 MIL/uL (4.20-5.40); WHITE BLOOD COUNT (AUTO) 7.2 K/uL (4.8-10.8)
--- NOTE | 2018-09-29 07:50 | NUR ---
RECEIVED CALL FROM PHARMACY REGARDING TPN, INFORMED THAT PT HAS NO PICC LINE, DENIED TO HAVE PER CN NURSE. TO FOLLOW UP WITH .
[2018-09-29 08:00] VITALS: BP 119/52
[2018-09-29 08:18] LABS: SODIUM SERUM 143 mmol/L (136-145)
[2018-09-29 08:19] LABS: CARBON DIOXIDE 23.7 mmol/L (21-32); CHLORIDE 113 mmol/L (98-107); CREATININE 0.9 mg/dL (0.6-1.3); GLUCOSE 103 mg/dL (74-106); POTASSIUM 3.7 mmol/L (3.5-5.1); UREA NITROGEN, BLOOD 12 mg/dL (7-18)
[2018-09-29 08:23] LABS: ASPARTATE AMINOTRANSFERASE 33 U/L (15-37); TOTAL BILIRUBIN 3.8 mg/dL (0.0-1.0)
[2018-09-29 08:24] LABS: ALBUMIN 1.7 g/dL (3.4-5.0)
[2018-09-29 08:26] LABS: BASOPHILS % (MANUAL) 0 % (0-2); EOSINOPHILS % (MANUAL) 1 % (0-4); LYMPHOCYTES % (MANUAL) 10 % (20-46); MONOCYTES % (MANUAL) 7 % (5-12)
[2018-09-29 08:27] LABS: METAMYELOCYTES % 2 % (0-0); MYELOCYTES % 1 % (0-0)
--- NOTE | 2018-09-29 10:00 | NUR ---
CHECKED ON PT. LYING ON HER BED. NO SIGN OF DISTRESS NOTED. CAN CHANGED THE PT. PER DIRECTOR INFORMATICS, PT ASKING FOR ENSURE THAT HAS NO MILK, IS LACTOSE INTOLERANCE. FNS NOTIFIED. WILL CHANGE TO ENSURE LIQUID. ALL SAFETY MEASURE IN PLACE. WILL CONTINUE TO MONITOR PT.
--- NOTE | 2018-09-29 12:00 | NUR ---
CHECKED ON PT. LYING ON HER BED. BS 98 AT THIS TIME. VS NORMAL, NO FEVER , NO NAUSEA. NO SIGN OF DISTRESS NOTED AT THIS TIME. ALL SAFETY MEASURE IN PLACE. WILL CONTINUE TO MONITOR PT.
[2018-09-29 12:04] VITALS: BP 127/52
--- NOTE | 2018-09-29 14:00 | NUR ---
CHECKED ON PT. SITTING ON HER BED, DRINKING ENSURE JUICE. TOLERATING GOOD, OSTOMY BAG GOOD. NO SIGN OF DISTRESS NOTED . ALL SAFETY MEASURE IN PLACE. CALL LIGHT WITHIN PT REACH. INFORMED HER TO USE CALL LIGHT FOR ANY HELP . WILL CONTINUE TO MONITOR PT.
[2018-09-29 16:00] VITALS: BP 118/55
--- NOTE | 2018-09-29 16:19 | NUR ---
CHECKED ON PT. PT FAMILY NEPHEW AT BEDSIDE. UPDATED ON PT, STATES PT DOING FINE, APPEARS BETTER THAN BEFORE. PLANNING TO TAKE TO PRIMARY CARE PROVIDER AND TO MAKE DECISION PRIMARY PROVIDER SUGGEST. PT REFUSES PICC LINE AT THIS TIME. NO SIGN OF DISTRESS NOTED. ALL SAFETY MEASURE IN PLACE . WILL CONTINUE TO MONITOR PT.
--- NOTE | 2018-09-29 18:30 | NUR ---
CHANGED THE IV ISTE ON RT FA 24 G ON PT. DATED, IVF INFUSING WELL. NO SIGN OF DISTRESS NOTED. PT LYING ON HER BED. REMOVED THE OLD IV SITE FROM PT. WILL CONTINUE TO MONITOR PT.
--- NOTE | 2018-09-29 19:19 | NUR ---
ENDORSED PT TO PM NURSE AT BEDSIDE. PT IN STABLE CONDITION.
--- NOTE | 2018-09-29 19:20 | NUR ---
RECEIVED FROM AM RN IN BED SITTING UP AND WATCHING TC. CALL LIGHT WITH IN REACH. AFEBRILE. NO SOB. DENIES ANY "NO DOLOR " AT THIS TIME. IVF SITES INTACT AND NO INFILTRATION. DX. UTI COMPLICATED. TELEMETRY MONITORING. ABLE TO VERBALIZE NEEDS WELL.
[2018-09-29 19:30] VITALS: BP 120/56
--- NOTE | 2018-09-29 21:55 | NUR ---
PT. SLEEPING. NO RESTLESSNESS NOTED. CALL LIGHT WITH IN REACH. ON TELEMETRY MONITORING.
--- NOTE | 2018-09-30 00:31 | NUR ---
PT.S NEEDS ANTICIPATED AND MET. MAXIMUM ASSIST. SLEEPING WELL . TURNED TO SIDES Q 2H WITH PILLOW SUPPORT TO PRESSURE AREAS. ENCOURAGE TO STAY ON TURNED SIDE. TELEMETRY MONITORING. AFEBRILE.
[2018-09-30 00:36] VITALS: BP 119/58
[2018-09-30] MEDS: BLOOD GLUCOSE MONITORING 1 DEV DEV MC SCH ×3 (01:13→12:35)
[2018-09-30 04:00] VITALS: BP 116/54
--- NOTE | 2018-09-30 04:30 | NUR ---
SLEEPING. KEPT CLEAN AND WARM. ABLE TO VERBALIZE NEEDS WELL. NO FEVER THIS SHIFT. TELEMETRY MONITORING. STILL ON IV ABT.
--- NOTE | 2018-09-30 06:15 | NUR ---
SLEPT WELL THIS SHIFT. NEEDS ANTICIPATED AND MET. AFEBRILE.
[2018-09-30 07:16] LABS: BASOPHILS % (AUTO) 0.8 % (0.0-2.0); EOSINOPHILS # (AUTO) 0.1 K/uL (0-0.4); HEMOGLOBIN 9.8 g/dL (12.0-16.0); LYMPHOCYTES # (AUTO) 1.3 K/uL (2.5-16.5); LYMPHOCYTES % (AUTO) 23.9 % (20.5-51.1); MEAN CORPUSCULAR HEMOGLOBIN 27 pg (27-31); MEAN CORPUSCULAR HGB CONC 33 g/dL (33-37); MEAN CORPUSCULAR VOLUME 83.9 fL (80-94); MONOCYTES # (AUTO) 0.4 K/uL (0.8-1.0); NEUTROPHILS # (AUTO) 3.5 K/uL (1.8-7.7); NEUTROPHILS % (AUTO) 66.3 % (42.2-75.2); PLATELET COUNT (AUTO) 68 K/uL (140-450); RED BLOOD CELL COUNT(AUTO) 3.58 MIL/uL (4.20-5.40); RED CELL DISTRIBUTION WIDTH 17.8 % (11.6-13.7); WHITE BLOOD COUNT (AUTO) 5.3 K/uL (4.8-10.8)
--- NOTE | 2018-09-30 07:22 | NUR ---
ENDORSED TO THE NEXT RN FOR CONTINUITY OF CARE. PT. NEEDS ANTICIPATED AND MET. TOTAL CARE. ABLE TO VERBALIZE NEEDS WELL IN [place]. AFEBRILE THIS SHIFT.
--- NOTE | 2018-09-30 07:26 | NUR ---
RECEIVED BEDSIDE REPORT FROM FIELD SERVICE CONSULTANT NURSE, PATIENT IS AWAKE, ALERT AND ORIENTEDX4. NO SIGNS OF DISTRESS ON ROOM AIR. PATIENT IS WEAK. FALL PRECAUTIONS IN PLACE. ASP PRECAUTIONS. PATIENT INCONTINENT, COLOSTOMY BAG IN PLACE. COLOSTOMY IS CLEAN, DRY AND INTACT. REMOVED 100 FECAL FROM BAG, YELLOW ORANGE COLOR, LIQ. SKIN IS INTACT. L FEMORAL FISTULA. TELE MONITOR IN PLACE. L FA 20G INFUSING D5NS AT 75. CLEAN, DRY AND INTACT. BED IN LOW POSITION. CALL LIGHT WITHIN REACH. WILL CONTINUE TO MONITOR THE PATIENT.
[2018-09-30 07:58] LABS: ANION GAP 12.9 (8-16); CARBON DIOXIDE 22.7 mmol/L (21-32); CHLORIDE 114 mmol/L (98-107); CREATININE 0.9 mg/dL (0.6-1.3); GLUCOSE 95 mg/dL (74-106); POTASSIUM 3.6 mmol/L (3.5-5.1); SODIUM SERUM 146 mmol/L (136-145); UREA NITROGEN, BLOOD 9 mg/dL (7-18)
[2018-09-30 08:00] VITALS: BP 126/57
[2018-09-30] MEDS ORDERED: LEVO500T2 PO (09:11)
[2018-09-30] MEDS: DEXT 5% /NACL 0.9% 1,000 ML IV SCH (09:15)
--- NOTE | 2018-09-30 09:18 | NUR ---
IV INFILTRATED. DR KIM SAID IT IS OK W NO IV ACCESS BECAUSE PATIENT IS BEING DISCHARGED TODAY. WILL CONTINUE TO MONITOR THE PATIENT
--- NOTE | 2018-09-30 11:20 | NUR ---
PATIENT IS SLEEPING. NO SIGNS OF DISTRESS. WILL CONTINUE TO MONITOR THE PATIENT
[2018-09-30 12:00] VITALS: BP 129/51
--- NOTE | 2018-09-30 12:10 | NUR ---
PATIENT SAID SHE WILL EAT IN A LITTLE, SHE IS REALLY SLEEPY. WILL CONTINUE TO MONITOR THE PATIENT
--- NOTE | 2018-09-30 13:36 | NUR ---
CM NOTE PER [facility] ANGY MCGEE, PATIENT HAS MEDICARE PART B AND HAS NO ASSIGNED PCP AND CAN GO TO ANY MD THAT ACCEPTS MEDICARE PART B. USING [employer] PHONE, SENIOR PENSIONS ADMINISTRATOR'S NAME: JOCELYNE, NUMBER: [id number]. PATIENT STATED SHE SEES DR. SETH SALAS IN [facility] FOR OUTPATIENT FF UP. PER JARROD [facility] DRYING TUNNEL OPERATOR PH# [phone], PATIENT IS CURRENTLY SEEING GUILLERMO FOURNIER MD PCP AND PATIENT IS SCHEDULED FOR OUTPATIENT FF UP ON OCTOBER 02 2018 8:00AM AT CLINIC IN [address] [place] [address] PH# [phone]. JARROD VILLAR AWARE. Addendum: 09/30/18 at 1349 by Crystal Ortega CM PATIENT BULGARIAN SPEAKING
--- NOTE | 2018-09-30 14:10 | NUR ---
PATIENT IN NO SIGNS OF DISTRESS. TRIED CONTACTING HER FAMILY SEVERAL TIMES, LEFT MESSAGE ABOUT DISCHARGE. PATIENT STATED THEY ARE USUALLY BUSY UNTIL 4 OR 5PM
[2018-09-30 16:00] VITALS: BP 124/60
--- NOTE | 2018-09-30 16:00 | NUR ---
VITALS ARE STABLE. CHANGED PATIENT. PATIENT TOLERATED TURNS WELL. WILL CONTINUE TO MONITOR THE PATIENT
--- NOTE | 2018-09-30 17:05 | NUR ---
NEPHZHANG TIJERINA AND AT BEDSIDE. 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 CHERYL, #[id number]. EDUCATED ON DISEASE PROCESS, ABN S/SX, WHEN TO GO TO THE ER, EDUCATED ON MEDS, GAVE PRESCRIPTIONS, EDUCATED ON F/U W PCP. PATIENT VERBALIZED UNDERSTANDING. PATIENT REFUSED PNA AND FLU VACCINE. PATIENT DID NOT SIGN, D/T WEAKNESS BUT VERBALIZED UNDERSTANDING OF HER DISCHARGE. ID BANDS REMOVED. TELE REMOVED. PATIENT LEFT IN STABLE CONDITION IN WHEELCHAIR.
== END 2018-09-30 17:05 | disposition home or self-care (01) | DRG 721 ==
LOC: MED 18:35 → MTU 21:38
PROVIDERS: ADMIT Internal Medicine; ATTEND Internal Medicine
PROC: 02PYX3Z Removal of Infusion Device from Great Vessel, External Approach (ICD-10-PCS; principal; 2018-09-26)
PROC: 30233R1 Transfusion of Nonautologous Platelets into Peripheral Vein, Percutaneous Approach (ICD-10-PCS; 2018-09-27)
DX: T80.211A Bloodstream infection due to central venous catheter, initial encounter (principal); A41.59 Other Gram-negative sepsis; E43 Unspecified severe protein-calorie malnutrition; D69.6 Thrombocytopenia, unspecified; L89.90 Pressure ulcer of unspecified site, unspecified stage; D64.9 Anemia, unspecified; R13.10 Dysphagia, unspecified; N30.90 Cystitis, unspecified without hematuria; J44.9 Chronic obstructive pulmonary disease, unspecified; R16.1 Splenomegaly, not elsewhere classified; K21.9 Gastro-esophageal reflux disease without esophagitis; N27.0 Small kidney, unilateral; T36.8X5A Adverse effect of other systemic antibiotics, initial encounter; Y84.8 Other medical procedures as the cause of abnormal reaction of the patient, or of later complication, without mention of misadventure at the time of the procedure; Z79.899 Other long term (current) drug therapy; Z93.3 Colostomy status; Z90.49 Acquired absence of other specified parts of digestive tract; Z90.710 Acquired absence of both cervix and uterus; Z92.21 Personal history of antineoplastic chemotherapy; Z92.3 Personal history of irradiation; Z87.891 Personal history of nicotine dependence; Z85.038 Personal history of other malignant neoplasm of large intestine; Z68.1 Body mass index [BMI] 19.9 or less, adult; Y92.89 Other specified places as the place of occurrence of the external cause
CPT/HCPCS: 36415; 71045; 76705; 80048; 80053; 81001; 82310; 82948; 83605; 83690; 83735; 83880; 84100; 84478; 84484; 85025; 85610; 85730; 86886; 86900; 86901; 87040; 87070; 87081; 87086; 87186; 87804; 93005; 96361; 96365; 96375; 99291; A9153; J0696; J1815; J1885; J2405; J2543; J3370; J7030; J7042; J7060; P9035; Q0092; Q0163

== ENCOUNTER 2019-03-10 15:12 | Emergency (ER) | payer MEDICARE, OTHER ==
[~2019-03-10] VITALS: Ht 165.1 cm; Wt 42.2 kg
[2019-03-10 15:12] VITALS: BP 92/55
[~2019-03-10 15:12] MED LIST: ATRO1TAB PO; FERR324T11 PO; LEVO500T2 PO; MIRA25TE PO; MULT-1993 PO; TAMS0.4C96 PO; TRAZ-343 PO; URSO300C14 PO; ZINC220C12 PO; [UNRECOGNIZED DRUG - CODE] OP
--- NOTE | 2019-03-10 15:12 | NUR ---
PT AMBULATED TO ER BED 12
[2019-03-10 16:03] VITALS: BP 95/57
--- NOTE | 2019-03-10 16:03 | NUR ---
Patient discharged with v/s stable. Written and verbal after care instructions given and explained. Patient alert, oriented and verbalized understanding of instructions. Ambulatory with steady gait. All questions addressed prior to discharge. ID band removed. Patient advised to follow up with PMD. Rx of CLINDAMYCIN AND NEOSPORIN given. Patient educated on indication of medication including possible reaction and side effects. Opportunity to ask questions provided and answered.
== END 2019-03-10 16:03 | disposition home or self-care (01) ==
LOC: MED 15:12
DX: N76.4 Abscess of vulva (principal); N76.2 Acute vulvitis; E11.9 Type 2 diabetes mellitus without complications; K21.9 Gastro-esophageal reflux disease without esophagitis; Z90.49 Acquired absence of other specified parts of digestive tract; Z79.899 Other long term (current) drug therapy; Z79.2 Long term (current) use of antibiotics; Z88.0 Allergy status to penicillin; Z88.8 Allergy status to other drugs, medicaments and biological substances; Z85.43 Personal history of malignant neoplasm of ovary; Z85.42 Personal history of malignant neoplasm of other parts of uterus; Z98.890 Other specified postprocedural states
CPT/HCPCS: 99283